=== PATIENT | female | born 2000 | race African-American/Black ===

== ENCOUNTER 2019-06-04 15:07 | Emergency (ER) | payer BC ==
[~2019-06-04] VITALS: Ht 162.6 cm; Wt 64.9 kg
[2019-06-04 15:11] VITALS: BP 116/70; Ht 162.6 cm; Wt 64.9 kg
== END 2019-06-04 16:04 | disposition left against medical advice (07) ==
LOC: ED 15:07
DX: Z53.21 Procedure and treatment not carried out due to patient leaving prior to being seen by health care provider (principal)